=== PATIENT | male | born 1955 | race Caucasian/White ===

== ENCOUNTER 2016-08-04 10:38 | Emergency (ER) | payer SELFPAY ==
[2016-08-04] MEDS ORDERED: ADVIL200 M3 PO (11:40)
== END 2016-08-04 12:02 ==
LOC: EDMED 10:38
DX: S46.912A Strain of unspecified muscle, fascia and tendon at shoulder and upper arm level, left arm, initial encounter (principal); F17.210 Nicotine dependence, cigarettes, uncomplicated; Z98.890 Other specified postprocedural states; W18.30XA Fall on same level, unspecified, initial encounter; Y92.59 Other trade areas as the place of occurrence of the external cause